=== PATIENT | female | born 1955 | race Caucasian/White ===

== ENCOUNTER 2018-11-26 10:38 | Outpatient (REF) | payer MEDICARE, SELFPAY ==
[2018-11-26 22:14] LABS: Anion Gap 7.1 mmol/L (3-11); BUN 51 mg/dL (7-18); CO2 24.9 mmol/L (21.0-32.0); CREATININE 2.67 mg/dL (0.55-1.02); Calcium 9.1 mg/dL (8.5-10.1); Chloride 107 mmol/L (98-107); Cholesterol 251 mg/dL (50-200); Estimated GFR 17.92 (mL/min/1.73m2); Glucose 92 mg/dL (70-100); HDL Cholesterol 34 mg/dL (40-60); LDL CHOLESTEROL 170 mg/dL (<100); Sodium 139 mmol/L (136-145); Triglyceride 246 mg/dL (30-150)
[2018-11-26 22:32] LABS: Potassium 6.7 mmol/L (3.5-5.1)
[2018-11-26 23:04] LABS: COMMENT (LAB VIEW ONLY) 109.29 mg/dL
== END 2018-11-26 10:58 ==
LOC: NCHCN 10:38
PROVIDERS: PCP Family Medicine; Visit Provider Family Medicine
DX: I10 Essential (primary) hypertension (principal); E78.5 Hyperlipidemia, unspecified
CPT/HCPCS: 80048; 80061; 83721; 82043; 82570

== ENCOUNTER 2018-12-16 13:49 | Outpatient (REF) | payer MEDICARE, SELFPAY ==
[2018-12-16 22:23] LABS: Anion Gap 11.6 mmol/L (3-11); BUN 51 mg/dL (7-18); CO2 21.4 mmol/L (21.0-32.0); CREATININE 2.53 mg/dL (0.55-1.02); Calcium 8.9 mg/dL (8.5-10.1); Chloride 106 mmol/L (98-107); Estimated GFR 19.06 (mL/min/1.73m2); Glucose 120 mg/dL (70-100); PHOSPHORUS 4.1 mg/dL (2.6-4.7); Potassium 5.2 mmol/L (3.5-5.1); Sodium 139 mmol/L (136-145)
== END 2018-12-16 14:09 ==
LOC: NCHCN 13:49
PROVIDERS: PCP Family Medicine; Visit Provider Family Medicine
DX: N18.4 Chronic kidney disease, stage 4 (severe) (principal)
CPT/HCPCS: 80048; 84100

== ENCOUNTER 2018-12-20 14:39 | Outpatient (REF) | payer MEDICARE, SELFPAY ==
[2018-12-20 22:03] LABS: PROTEIN 127.2 mg/dL (0.0-11.9)
[2018-12-20 22:04] LABS: TOTAL PROTEIN,URINE TIMED 1551.8 mg/24hr (0.0-149.1); Total Volume 1220 ml
== END 2018-12-20 14:59 ==
LOC: NCHCN 14:39
PROVIDERS: PCP Family Medicine; Visit Provider Family Medicine
DX: N18.4 Chronic kidney disease, stage 4 (severe) (principal)
CPT/HCPCS: 81050; 84155

== ENCOUNTER 2020-02-14 17:15 | Outpatient (REF) | payer MEDICARE, SELFPAY ==
[2020-02-14 21:23] LABS: Anion Gap 9.5 mmol/L (3-11); BUN 49 mg/dL (7-18); CO2 24.5 mmol/L (21.0-32.0); CREATININE 3.42 mg/dL (0.55-1.02); Calcium 9.2 mg/dL (8.5-10.1); Chloride 101 mmol/L (98-107); Estimated GFR 13.42 (mL/min/1.73m2); Glucose 137 mg/dL (74-106); Potassium 5.5 mmol/L (3.5-5.1); Sodium 135 mmol/L (136-145)
[2020-02-14 21:29] LABS: Hemoglobin A1C 7.8 % (3.8-5.6)
== END 2020-02-14 17:35 ==
LOC: NCHCN 17:15
PROVIDERS: PCP Family Medicine; Visit Provider Family Medicine
DX: I10 Essential (primary) hypertension (principal); E11.8 Type 2 diabetes mellitus with unspecified complications
CPT/HCPCS: 80048; 83036

== ENCOUNTER 2020-08-22 13:21 | Outpatient (REF) | payer MEDICARE, SELFPAY ==
[2020-08-23 04:41] LABS: Vitamin D 25 Total 21.5 ng/ml (30-100)
== END 2020-08-22 13:41 ==
LOC: NCHCN 13:21
PROVIDERS: PCP Family Medicine; Visit Provider Family Medicine
DX: E55.9 Vitamin D deficiency, unspecified (principal)
CPT/HCPCS: 82306

== ENCOUNTER 2021-08-19 13:31 | Outpatient (REF) | payer MEDICARE, SELFPAY ==
[2021-08-19 22:01] LABS: ALT 20 U/L (14-59); AST 21 U/L (15-37); Albumin 3.5 g/dL (3.4-5.0); Alkaline Phosphatase 92 U/L (46-116); Anion Gap 9.9 mmol/L (3-11); BUN 59 mg/dL (7-18); Bilirubin, Total 0.2 mg/dL (0.2-1.0); CO2 26.1 mmol/L (21.0-32.0); Calcium 9.1 mg/dL (8.5-10.1); Chloride 101 mmol/L (98-107); Estimated GFR 10.56 (mL/min/1.73m2); Glucose 206 mg/dL (74-106); Potassium 4.4 mmol/L (3.5-5.1); Sodium 137 mmol/L (136-145); Total Protein 7.4 g/dL (6.4-8.2)
[2021-08-19 22:07] LABS: CREATININE 4.2 mg/dL (0.55-1.02)
[2021-08-20 01:06] LABS: Vitamin D 25 Total 24.1 ng/mL (30-100)
== END 2021-08-19 13:32 | disposition home or self-care (01) ==
LOC: NCHCN 13:31
PROVIDERS: PCP Family Medicine; Visit Provider Family Medicine
DX: N18.4 Chronic kidney disease, stage 4 (severe) (principal); E11.8 Type 2 diabetes mellitus with unspecified complications; Z71.89 Other specified counseling
CPT/HCPCS: 80053; 82306

== ENCOUNTER 2022-03-05 19:13 | Outpatient (REF) | payer MEDICARE, SELFPAY ==
[2022-03-05 21:22] LABS: HCT 41.6 % (36.0-46.0); MCH 28.6 pg (27.0-33.0); MCHC 31.3 % (32.0-36.0); MCV 91 fL (80-95); MPV 11.5 fL (8.0-11.0); Platelet Count 240 10^3/uL (130-400); RBC 4.55 10^6/uL (3.93-5.22); RDW 12.7 % (11.7-14.6); RDW-SD 42.7 fL; WBC 9.91 10^3/uL (4.4-10.8)
[2022-03-05 21:30] LABS: Albumin 3.9 g/dL (3.4-5.0); BUN 68 mg/dL (7-18); Calcium 9.7 mg/dL (8.5-10.1); Chloride 104 mmol/L (98-107); Estimated GFR 8.61 (mL/min/1.73m2); Glucose 110 mg/dL (74-106); Potassium 4.7 mmol/L (3.5-5.1); Sodium 140 mmol/L (136-145)
== END 2022-03-05 19:14 | disposition home or self-care (01) ==
LOC: NCHCN 19:13
PROVIDERS: PCP Family Medicine; Visit Provider Family Medicine
DX: N18.4 Chronic kidney disease, stage 4 (severe) (principal); D63.1 Anemia in chronic kidney disease
CPT/HCPCS: 80069; 85027

== ENCOUNTER 2022-06-03 17:03 | Outpatient (REF) | payer MEDICARE, SELFPAY ==
[2022-06-03 20:40] LABS: Anion Gap 8.2 mmol/L (3-11); BUN 53 mg/dL (7-18); CO2 26.8 mmol/L (21.0-32.0); Calcium 9.9 mg/dL (8.5-10.1); Chloride 101 mmol/L (98-107); Estimated GFR 8.49 (mL/min/1.73m2); Glucose 157 mg/dL (74-106); Potassium 4.7 mmol/L (3.5-5.1); Sodium 136 mmol/L (136-145)
[2022-06-03 20:59] LABS: CREATININE 5.2 mg/dL (0.55-1.02)
== END 2022-06-03 17:04 | disposition home or self-care (01) ==
LOC: NCHCN 17:03
PROVIDERS: PCP Family Medicine; Visit Provider Family Medicine
DX: I10 Essential (primary) hypertension (principal); E66.01 Morbid (severe) obesity due to excess calories
CPT/HCPCS: 80048

== ENCOUNTER 2025-05-08 16:15 | Outpatient (REF) | payer MEDICARE, SELFPAY ==
[2025-05-08 22:22] LABS: COMMENT (LAB VIEW ONLY) 104.22 mg/dL
== END 2025-05-08 16:16 | disposition home or self-care (01) ==
LOC: NCHCN 16:15
PROVIDERS: PCP Family Medicine; Visit Provider Family Medicine
DX: E11.8 Type 2 diabetes mellitus with unspecified complications (principal)
CPT/HCPCS: 82043; 82570

== ENCOUNTER 2025-05-09 17:48 | Outpatient (REF) | payer MEDICARE, SELFPAY ==
[2025-05-09 20:55] LABS: HCT 35.0 % (36.0-46.0); HGB 10.6 g/dL (11.2-15.7); MCH 27.7 pg (27.0-33.0); MCHC 30.3 % (32.0-36.0); MCV 92 fL (80-95); MPV 11.7 fL (8.0-11.0); Platelet Count 192 10^3/uL (130-400); RBC 3.82 10^6/uL (3.93-5.22); RDW 14.0 % (11.7-14.6); RDW-SD 47.0 fL; WBC 7.91 10^3/uL (4.4-10.8)
[2025-05-09 21:10] LABS: ALT 17 U/L (14-59); AST 21 U/L (15-37); Albumin 3.4 g/dL (3.4-5.0); Alkaline Phosphatase 110 U/L (46-116); Anion Gap 10.2 mmol/L (3-11); BUN 63 mg/dL (7-18); Bilirubin, Total 0.3 mg/dL (0.2-1.0); CO2 25.8 mmol/L (21.0-32.0); Calcium 9.0 mg/dL (8.5-10.1); Calculated LDL 161 mg/dL (<100); Chloride 105 mmol/L (98-107); Cholesterol 235 mg/dL (<200); Estimated GFR 11.08 (mL/min/1.73m2); Glucose 97 mg/dL (74-106); HDL Cholesterol 36 mg/dL (>or=50); Potassium 4.7 mmol/L (3.5-5.1); Sodium 141 mmol/L (136-145); Total Protein 7.4 g/dL (6.4-8.2); Triglyceride 194 mg/dL (<150)
== END 2025-05-09 17:49 | disposition home or self-care (01) ==
LOC: NCHCN 17:48
PROVIDERS: PCP Family Medicine; Visit Provider Family Medicine
DX: E11.8 Type 2 diabetes mellitus with unspecified complications (principal); I10 Essential (primary) hypertension
CPT/HCPCS: 80053; 80061; 85027

== ENCOUNTER 2025-06-13 16:04 | Outpatient (REF) | payer MEDICARE, SELFPAY ==
[2025-06-13 17:57] LABS: ALT 21 U/L (14-59); AST 18 U/L (15-37); Albumin 3.7 g/dL (3.4-5.0); Alkaline Phosphatase 107 U/L (46-116); Anion Gap 10.5 mmol/L (3-11); BUN 69 mg/dL (7-18); Bilirubin, Total 0.4 mg/dL (0.2-1.0); CO2 24.5 mmol/L (21.0-32.0); Calcium 9.7 mg/dL (8.5-10.1); Chloride 104 mmol/L (98-107); Estimated GFR 8.53 (mL/min/1.73m2); Glucose 102 mg/dL (74-106); Potassium 5.0 mmol/L (3.5-5.1); Sodium 139 mmol/L (136-145); Total Protein 7.8 g/dL (6.4-8.2)
== END 2025-06-13 16:05 | disposition home or self-care (01) ==
LOC: NCHCN 16:04
PROVIDERS: PCP Family Medicine; Visit Provider Family Medicine
DX: N18.5 Chronic kidney disease, stage 5 (principal)
CPT/HCPCS: 80053

== ENCOUNTER 2025-07-27 12:01 | Outpatient (REF) | payer MEDICARE, SELFPAY ==
[2025-07-27 15:05] LABS: HCT 37.2 % (36.0-46.0); HGB 11.3 g/dL (11.2-15.7); MCH 27.4 pg (27.0-33.0); MCHC 30.4 % (32.0-36.0); MCV 90 fL (80-95); MPV 11.0 fL (8.0-11.0); Platelet Count 197 10^3/uL (130-400); RBC 4.12 10^6/uL (3.93-5.22); RDW 13.8 % (11.7-14.6); RDW-SD 45.7 fL; WBC 7.26 10^3/uL (4.4-10.8)
[2025-07-27 15:26] LABS: Anion Gap 8.1 mmol/L (3-11); BUN 51 mg/dL (7-18); CO2 25.9 mmol/L (21.0-32.0); Calcium 9.3 mg/dL (8.5-10.1); Chloride 105 mmol/L (98-107); Glucose 100 mg/dL (74-106); Potassium 5.1 mmol/L (3.5-5.1); Sodium 139 mmol/L (136-145)
== END 2025-07-27 12:02 | disposition home or self-care (01) ==
LOC: NCHCN 12:01
PROVIDERS: PCP Family Medicine; Visit Provider Family Medicine
DX: N18.5 Chronic kidney disease, stage 5 (principal); I50.9 Heart failure, unspecified
CPT/HCPCS: 80048; 85027; 83880; 84100

== ENCOUNTER 2025-09-07 11:34 | Outpatient (REF) | payer MEDICARE, SELFPAY ==
[2025-09-07 18:17] LABS: Anion Gap 11.9 mmol/L (3-11); BUN 72 mg/dL (9-23); CO2 22.1 mmol/L (20.0-31.0); Calcium 9.0 mg/dL (8.3-10.6); Chloride 107 mmol/L (98-107); Cholesterol 138 mg/dL (<200); Glucose 136 mg/dL (74-106); HDL Cholesterol 40 mg/dL (>or=50); Potassium 4.5 mmol/L (3.5-5.1); Sodium 141 mmol/L (136-145)
== END 2025-09-07 11:35 | disposition home or self-care (01) ==
LOC: NCHCN 11:34
PROVIDERS: PCP Family Medicine; Visit Provider Family Medicine
DX: E78.5 Hyperlipidemia, unspecified (principal); N18.5 Chronic kidney disease, stage 5
CPT/HCPCS: 80048; 80061